=== PATIENT | female | born 1995 | race Caucasian/White ===

== ENCOUNTER → 2023-10-25 08:00 | Outpatient (REF) | payer OTHER, SELFPAY | LOC: WDC 08:00 | PROVIDERS: ATTENDING PHYSICIAN Advanced Practice Midwife | DX: N64.4 Mastodynia (principal); N63.20 Unspecified lump in the left breast, unspecified quadrant | CPT/HCPCS: 76642 ==

== ENCOUNTER → 2023-12-10 16:56 | Outpatient (REF) | payer OTHER, SELFPAY | LOC: RAD 16:56 | PROVIDERS: ATTENDING PHYSICIAN Nurse Practitioner Family; FAMILY PHYSICIAN Nurse Practitioner Adult Health | DX: Z34.90 Encounter for supervision of normal pregnancy, unspecified, unspecified trimester (principal); O99.210 Obesity complicating pregnancy, unspecified trimester | CPT/HCPCS: 76801 ==

== ENCOUNTER → 2023-12-20 15:44 | Outpatient (REF) | payer OTHER, SELFPAY | LOC: PNTC 15:44 | PROVIDERS: ATTENDING PHYSICIAN Obstetrics & Gynecology | DX: O99.210 Obesity complicating pregnancy, unspecified trimester (principal) | CPT/HCPCS: 36415 ==

== ENCOUNTER → 2024-01-22 15:34 | Outpatient (REF) | payer OTHER, SELFPAY | LOC: PNTC 15:34 | PROVIDERS: ATTENDING PHYSICIAN Obstetrics & Gynecology | DX: O99.210 Obesity complicating pregnancy, unspecified trimester (principal) | CPT/HCPCS: 36415; 76805 ==

== ENCOUNTER → 2024-02-19 15:52 | Outpatient (REF) | payer OTHER, SELFPAY | LOC: PNTC 15:52 | PROVIDERS: ATTENDING PHYSICIAN Obstetrics & Gynecology | DX: O99.210 Obesity complicating pregnancy, unspecified trimester (principal) | CPT/HCPCS: 76811 ==

== ENCOUNTER → 2024-03-20 16:17 | Outpatient (REF) | payer OTHER, SELFPAY | LOC: PNTC 16:17 | PROVIDERS: ATTENDING PHYSICIAN Obstetrics & Gynecology | DX: O99.210 Obesity complicating pregnancy, unspecified trimester (principal) | CPT/HCPCS: 76816 ==

== ENCOUNTER → 2024-04-17 16:30 | Outpatient (REF) | payer OTHER, SELFPAY | LOC: PNTC 16:30 | PROVIDERS: ATTENDING PHYSICIAN Obstetrics & Gynecology | DX: O99.210 Obesity complicating pregnancy, unspecified trimester (principal) | CPT/HCPCS: 76816 ==

== ENCOUNTER → 2024-05-15 16:24 | Outpatient (REF) | payer BC, SELFPAY | LOC: PNTC 16:24 | PROVIDERS: ATTENDING PHYSICIAN Obstetrics & Gynecology | DX: O99.210 Obesity complicating pregnancy, unspecified trimester (principal) | CPT/HCPCS: 59025 ==

== ENCOUNTER → 2024-05-22 16:08 | Outpatient (REF) | payer BC, SELFPAY | LOC: PNTC 16:08 | PROVIDERS: ATTENDING PHYSICIAN Obstetrics & Gynecology | DX: O99.210 Obesity complicating pregnancy, unspecified trimester (principal) | CPT/HCPCS: 59025 ==

== ENCOUNTER → 2024-05-29 16:07 | Outpatient (REF) | payer BC, SELFPAY | LOC: PNTC 16:07 | PROVIDERS: ATTENDING PHYSICIAN Obstetrics & Gynecology | DX: O99.210 Obesity complicating pregnancy, unspecified trimester (principal) | CPT/HCPCS: 59025 ==

== ENCOUNTER → 2024-06-05 16:17 | Outpatient (REF) | payer BC, SELFPAY | LOC: PNTC 16:17 | PROVIDERS: ATTENDING PHYSICIAN Obstetrics & Gynecology | DX: O99.210 Obesity complicating pregnancy, unspecified trimester (principal) | CPT/HCPCS: 59025 ==

== ENCOUNTER → 2024-06-12 16:47 | Outpatient (REF) | payer BC, SELFPAY | LOC: PNTC 16:47 | PROVIDERS: ATTENDING PHYSICIAN Obstetrics & Gynecology | DX: O99.210 Obesity complicating pregnancy, unspecified trimester (principal) | CPT/HCPCS: 59025 ==

== ENCOUNTER → 2024-06-19 16:19 | Outpatient (REF) | payer BC, SELFPAY | LOC: PNTC 16:19 | PROVIDERS: ATTENDING PHYSICIAN Obstetrics & Gynecology | DX: O99.210 Obesity complicating pregnancy, unspecified trimester (principal) | CPT/HCPCS: 59025 ==

== ENCOUNTER 2024-06-23 09:08 | Inpatient (IN) | payer BC, SELFPAY ==
[2024-06-23] MEDS: PENICILLIN 110 UNITS IV (09:45)
[2024-06-23 09:52] VITALS: BP 125/82; BMI 49.3
[2024-06-23] MEDS: STADOL 1 MG IV (10:00)
[2024-06-23 10:35] LABS: % Basophils 0.4 % (0-2); % Eosinophils 0.3 % (0-6); % Immature Granulocytes 0.6 % (0-0.5); % Lymphocytes 21.5 % (20.5-51.1); % Monocytes 9.5 % (1.7-9.3); % Neutrophils 67.7 % (42.2-75.2); Absolute Lymphocytes 1.5 10^3/uL (1.2-3.4); Absolute Monocytes 0.7 10^3/uL (0.1-0.6); Absolute Neutrophils 4.8 10^3/uL (1.4-6.5); Hematocrit 36.7 % (37.0-47.0); Hemoglobin 11.9 g/dL (12.0-16.0); Mean Corp Hgb Conc. 32.4 g/dL (33.0-37.0); Mean Corpuscular Hgb 26.3 pg (27.0-31.0); Nucleated Red Blood Cells % 0 %; Platelet Count 226 10^3/uL (130-400); Red Blood Cell Count 4.53 10^6/uL (4.20-5.40); Red Cell Dist. Width 14.5 % (11.5-14.5); White Blood Cell Count 7.1 10^3/uL (4.8-10.8)
[2024-06-23] MEDS: FENTANYL/BUPIVACAINE 100 EPIDURAL (10:50)
[2024-06-23] MEDS: SUBLIMAZE 100 MCG EPIDURAL (10:51)
[2024-06-23] MEDS: MOTRIN 600 MG PO (15:41)
[2024-06-23] MEDS: TYLENOL 650 MG PO ×2 (15:41→23:49)
[2024-06-23] MEDS: PRISTIQ PO (19:55)
[2024-06-24 04:58] LABS: Hematocrit 31.7 % (37.0-47.0); Hemoglobin 10.4 g/dL (12.0-16.0)
[2024-06-24 05:51] LABS: Rubella Positive
[2024-06-24] MEDS: PRENATAL PLUS 1 TABLET PO (08:29)
[2024-06-24] MEDS: SENOKOT-S 1 TABLET PO (08:29)
[2024-06-24 11:31] LABS: Syphilis/T. pallidum Ab Reflex Negative (Negative)
[2024-06-24] MEDS: PRISTIQ 50 MG PO (19:37)
[2024-06-24] MEDS: MOTRIN 600 MG PO (19:37)
--- NOTE | 2024-06-25 04:00 | DOWNTIME ---
There was a [employer] Downtime on 06/25/2024 from 0100 to 06/25/2024 at 0350. Downtime documentation of patient's care, including medication administrations, has been reconciled in the electronic record per guidelines. Refer to the
patient's paper chart under the miscellaneous tab to see printed paper medication records and downtime forms.
[2024-06-25] MEDS: PRENATAL PLUS 1 TABLET PO (08:52)
--- NOTE | 2024-06-25 10:11 | W.DCSUMMARY ---
Discharge Summary
Discharge Data
Date of Admission: 06/23/24
Date of Discharge: 06/25/24
-
Pending Results: No
Hospital Course
Discharging Physician : Dr. Nava, Dr. Marques
Disposition : Home
Principal Discharge diagnosis : status post spontaneous vaginal delivery; course complicated by BMI 51, GBS bacteruria
Chronic Discharge diagnosis : anxiety/depression on desvenlafaxine, gaucher disease
Hospital Course : Presented to L&D 06/23/24 for contractions and was found to be in labor. Her labor was managed expectedly, and she received an epidural per maternal request. Membranes were artificially ruptured for meconium and neonatology was
present at delivery. She received penicillin for GBS prophylaxis. Spontaneous vaginal delivery on 06/23/24 was uncomplicated. Her course was uncomplicated. On day of discharge, she was stable. She will follow up for her [employer] in 6 weeks
.
Discharge Plan
-
Patient Disposition: Home (Routine Discharge)
Discharge Diagnosis/Procedures: s/p vaginal delivery
Condition: Good
Diet: No restrictions
Stand Alone Forms: LDRP Vaginal Delivery
Referrals:
UNKNOWN,NO INTERVIEW [Family Provider] -
Opal Klein MD [Active] - in six weeks
Prescriptions:
New
ibuprofen 200 mg tablet
600 mg PO Q6HPRN PRN (Reason: moderate pain/cramps) Qty: 0 0RF
acetaminophen 325 mg Tablet
650 mg PO Q4HPRN PRN (Reason: mild pain) Qty: 0 0RF
Continued
Vitamin 1 EACH tablet
1 tab PO DAILY
desvenlafaxine succinate 50 mg Tablet Extended Release 24 Hr
50 mg PO DAILY
Discharge Orders:
Discharge Patient (As Directed); Ordered 06/25/24
Ordered By: Mesha Marques
Discharge Date and Time
Print Language: POLISH
== END 2024-06-25 11:10 | disposition home or self-care (01) | DRG 807 ==
LOC: LDRP 09:08
PROVIDERS: Obstetrics & Gynecology; ADMITTING PHYSICIAN Obstetrics & Gynecology
PROC: 10907ZC Drainage of Amniotic Fluid, Therapeutic from Products of Conception, Via Natural or Artificial Opening (ICD-10-PCS; 2024-06-23)
PROC: 10E0XZZ Delivery of Products of Conception, External Approach (ICD-10-PCS; 2024-06-23)
PROC: 6A550ZT Pheresis of Cord Blood Stem Cells, Single (ICD-10-PCS; 2024-06-23)
PROC: 3E02340 Introduction of Influenza Vaccine into Muscle, Percutaneous Approach (ICD-10-PCS; 2024-06-25)
DX: O99.824 Streptococcus B carrier state complicating childbirth (principal); Z37.0 Single live birth; Z3A.38 38 weeks gestation of pregnancy; O77.0 Labor and delivery complicated by meconium in amniotic fluid; O69.81X0 Labor and delivery complicated by cord around neck, without compression, not applicable or unspecified; O99.344 Other mental disorders complicating childbirth; F41.9 Anxiety disorder, unspecified; F32.A Depression, unspecified; O99.214 Obesity complicating childbirth; E75.22 Gaucher disease; Z23 Encounter for immunization
CPT/HCPCS: 36415; 85014; 85018; 85025; 86762; 86780; 86850; 86900; 86901